=== PATIENT | male | born 1960 | race Hispanic/Latino ===

== ENCOUNTER 2020-05-07 09:29 | Emergency (ER) | payer OTHER ==
[~2020-05-07] VITALS: Ht 170.2 cm; Wt 77.1 kg
[2020-05-07] MEDS ORDERED: LIDOCAINE HCL 2% LOCAL 20 ML VIAL ONE (09:49)
[2020-05-07] MEDS ORDERED: LIDOCAINE HCL 2% LOCAL 20 ML VIAL INJ ONE (10:00)
--- NOTE | 2020-05-07 10:00 | Emergency Department Note ---
History of Present Illnes History of Present Illness Chief Complaint: Laceration History of Present Illness This is a 59 year old male hief Complaint Comment CUT RT INDEX FINGER O N AIR CONDITIONER BLADE. PT WITH APPROX ONE INCH LAC TO TRAN SIDE RT INDEX FINGER. BLEEDING CONTROLLED. TETNAUS < 5 YRS. DENIES PAIN. AAOX4. AMBULATORY. COOPERATIVE AND PLEASANT. . Historian: Patient, Friend Arrival Mode: Car Onset (how long ago): hour(s) (1) Location: hand Quality: laceration Radiation: Reports non-radiation Severity: moderate Onset quality: sudden Duration (how long): hour(s) (1) Timing of current episode: constant Progression: unchanged Chronicity: new Context: Denies recent illness, Denies recent surgery, Denies recent immobilization, Denies recent travel, Denies trauma/injury, Denies new medications, Denies hx of DVT/PE, Denies non-compliance w/ medications, Denies other Relieving factors: none Exacerbating factors: none Associated symptoms: Reports denies other symptoms Treatments prior to arrival: none Past Medical/Family History Physician Review I have reviewed the patient's past medical and family history. Any updates have been documented here. Past Medical History Recent Fever: No Clinical Suspicion of Infectio: No New/Unexplained Change in Ment: No Past Medical History: None Past Surgical History: None Social History Smoking Cessation: Never Smoker Counseling Performed: No Alcohol Use: Occasional Any Illegal Drug Use: No Physically hurt or threatened: No Other Any Pre-Existing Lines (PICC,: No Review of Systems Review of Systems Constitutional: Reports no symptoms EENTM: Reports no symptoms Cardiovascular: Reports no symptoms Respiratory: Reports no symptoms Gastrointestinal: Reports no symptoms Genitourinary: Reports no symptoms Musculoskeletal: Reports no symptoms Integumentary: Reports no symptoms, Reports as per HPI Neurological: Reports no symptoms Psychological: Reports no symptoms Endocrine: Reports no symptoms Hematological/Lymphatic: Reports no symptoms Physical Exam Related Data Allergies: Coded Allergies: No Known Allergies (Unverified , 05/07/20) Triage Vital Signs Vital Signs Date Time Temp Pulse Resp B/P (MAP) Pulse Ox O2 Delivery O2 Flow Rate FiO2 05/07/20 09:45 97.0 81 16 151/85 99 Room Air Physical Exam CONSTITUTIONAL Constitutional: Present well-developed, Present well-nourished HENT HENT: Present normocephalic, Present atraumatic, Present oropharynx clear/moist, Present nose normal HENT L/R: Present left ext ear normal, Present right ext ear normal EYES Eyes: Reports PERRL, Reports conjunctivae normal NECK Neck: Present ROM normal PULMONARY Pulmonary: Present effort normal, Present breath sounds normal CARDIOVASCULAR Cardiovascular: Present regular rhythm, Present heart sounds normal, Present capillary refill normal, Present normal rate GASTROINTESTINAL Abdominal: Present soft, Present nontender, Present bowel sounds normal GENITOURINARY Genitourinary: Present exam deferred SKIN Skin: Present warm, Present dry, Present other (laceration right index finger) MUSCULOSKELETAL Musculoskeletal: Present ROM normal NEUROLOGICAL Neurological: Present alert, Present oriented x 3, Present no gross motor or sensory deficits PSYCHOLOGICAL Psychological: Present mood/affect normal, Present judgement normal Procedures Laceration Laceration: Laceration 1 Site: hand Side: right Size (cm): 4 Description: linear Depth: simple, single layer Local anesthesia: lidocaine 1% Amount of anesthesia (mL): 10 Pre-repair: wound exposed Skin layer closed with: nylon Size (cm): 5-0 Number of sutures: 4 Assessment & Plan Medical Decision Making MDM laceration Reassessment Reassessment better Assessment & Plan Final Impression: (1) Laceration of right index finger (2) Acute pain due to trauma Depart Disposition: HOME, SELF-CARE Last Vital Signs Date Time Temp Pulse Resp B/P (MAP) Pulse Ox O2 Delivery O2 Flow Rate FiO2 05/07/20 09:45 97.0 81 16 151/85 99 Room Air Home Meds Active Scripts Cephalexin Monohydrate (KEFLEX) 500 Mg Capsule, 500 MG PO Q6H, #28 TAB 0 Refills Prov:IVANNA KRISHNA MD 05/07/20 Medications in the ED Lidocaine HCl 400 mg STK-MED ONCE .ROUTE ; Start 05/07/20 at 09:49; Stop 05/07/20 at 09:42; Status DC Lidocaine HCl 20 mg ONCE ONCE INJ Last administered on 05/07/20at 09:55; Admin Dose 20 MG; Start 05/07/20 at 10:00; Stop 05/07/20 at 10:01 IVANNA KRISHNA MD May 07, 2020 10:00
[2020-05-07] MEDS ORDERED: KEFLEX500 MG PO (10:01)
[2020-05-07] MEDS ORDERED: BACITRACIN ZINC 0.9GM TP ONE ×3 (10:03→10:15)
== END 2020-05-07 10:10 | disposition home or self-care (01) ==
LOC: FSED 09:59
DX: S61.210A Laceration without foreign body of right index finger without damage to nail, initial encounter (principal); W26.8XXA Contact with other sharp object(s), not elsewhere classified, initial encounter; Y99.0 Civilian activity done for income or pay
CPT/HCPCS: 12002; 99283; J2001